=== PATIENT | female | born 1970 | race Caucasian/White ===

== ENCOUNTER 2017-04-08 09:07 | Day surgery (SDC) | payer OTHER ==
[~2017-04-08] VITALS: Ht 154.9 cm; Wt 84.1 kg
[~2017-04-08 09:07] MED LIST: ADVIL,NUPRIN,M200 MG PO; BENICAR HCT 201 EACH PO; CIPRO500 MG PO; COLACE100 MG PO; DEXILANT60 MG PO; FLAGYL500 MG PO; HYDROCODON-ACE1 EAC7 PO; IBUPROFEN800 MG PO; METAMUCIL197.2 GM PO; MOTRIN800 MG PO; NORCO 5/3251 TABLET PO; PERCOCET 5/31 TABLET PO; PROBIOTIC1 EAC1 PO; RANITIDINE HCL150 M1 PO; SENNA8.6 MG PO; TYLENOL REGULA325 MG PO; VYTORIN 10/21 TABLET PO; Vancocin Oral Soluti PO; ZOCOR40 MG PO; ZOFRAN ODT4 MG PO
[2017-04-08 09:44] VITALS: BP 111/62
[2017-04-08 15:50] VITALS: BP 98/58
[2017-04-08 16:30] VITALS: BP 118/64
== END 2017-04-08 17:00 | disposition home or self-care (01) ==
LOC: SDC 09:07
DX: N80.3 Endometriosis of pelvic peritoneum (principal); N83.202 Unspecified ovarian cyst, left side; N94.6 Dysmenorrhea, unspecified; K21.9 Gastro-esophageal reflux disease without esophagitis; E78.5 Hyperlipidemia, unspecified; I10 Essential (primary) hypertension; E66.9 Obesity, unspecified; Z68.35 Body mass index [BMI] 35.0-35.9, adult
CPT/HCPCS: 88305; J0131; J0690; J1100; J1170; J1644; J1885; J2250; J2405; J2710; J3010